=== PATIENT | male | born 2000 | race Caucasian/White ===

== ENCOUNTER 2020-10-29 22:50 | Emergency (ER) | payer OTHER ==
[~2020-10-29] VITALS: Ht 182.8 cm; Wt 84.0 kg
[2020-10-29] MEDS ORDERED: FAMOTIDINE 20 MG (PEPCID) TABLET ONE (22:52)
[2020-10-29] MEDS ORDERED: diphenhydrAMINE 50 MG/ML INJ (BENADRYL) ONE (22:52)
[2020-10-29] MEDS ORDERED: predniSONE 20 MG TAB ONE (22:53)
[2020-10-29] MEDS ORDERED: FAMOTIDINE 20 MG (PEPCID) TABLET PO STA (22:57)
[2020-10-29] MEDS ORDERED: predniSONE 20 MG TAB PO ONE (23:00)
[2020-10-29] MEDS ORDERED: diphenhydrAMINE 50 MG/ML INJ (BENADRYL) IM ONE (23:00)
--- NOTE | 2020-10-29 23:21 | ED General ---
General Chief Complaint: Allergic Reaction Stated Complaint: ALLERGIC REACTION / TROUBLE BREATHING Nursing Triage Note: POSSIBLE ALLERGIC REACTION TO ACNE MEDICATION, THROAT DISCOMFORT Nursing Sepsis Screen: No Definite Risk Source of Information: Patient Exam Limitations: No Limitations History of Present Illness Date Seen by Provider: Oct 29, 2020 Time Seen by Provider: 22:52 Initial Comments Patient is here with complaint of redness to the face and throat after using an acne medicine to the face. States he had a similar reaction a few years ago. He did put the medicine on a few hours ago and then noticed redness a couple hours later. He did wash his face. Presented due to increasing redness and concerns about feeling like his throat was swelling a little. Not currently wheezing. No report of nausea, vomiting or weakness. States that he has environmental allergies and allergies to foods but no drug allergies that he knows of. Timing/Duration: 1-3 Hours Severity: Moderate Modifying Factors: worse with Medication Associated Systoms: No Chest Pain, No Cough, No Fever/Chills, No Nausea/Vomiting, No Shortness of Air, No Weakness Allergies and Home Medications Allergies Coded Allergies: No Known Drug Allergies (Unverified , 10/29/20) Patient Home Medication List Home Medication List Reviewed: Yes Review of Systems Review of Systems Constitutional: see HPI; No chills, No fever EENTM: throat swelling; No nose congestion, No throat pain Respiratory: No cough, No short of breath, No wheezing Cardiovascular: no symptoms reported Gastrointestinal: No nausea, No vomiting Musculoskeletal: no symptoms reported Skin: see HPI, change in color, rash Psychiatric/Neurological: Denies Headache, Denies Weakness All Other Systems Reviewed Negative Unless Noted: Yes Past Puzppgv-Cxcgci-Sedupt Hx Past Med/Social Hx: Reviewed Nursing Past Med/Soc Hx Patient Social History Alcohol Use: Denies Use Smoking Status: Never a Smoker 2nd Hand Smoke Exposure: No Recent Infectious Disease Expo: No Recent Hopitalizations: No Immunizations Up To Date Tetanus Booster (TDap): Less than 5yrs Seasonal Allergies Seasonal Allergies: Yes Past Medical History Surgeries: No Respiratory: Yes Asthma Cardiac: No Neurological: No Genitourinary: No Gastrointestinal: No Musculoskeletal: No Endocrine: No HEENT: No Cancer: No Psychosocial: No Integumentary: No Blood Disorders: No Family Medical History Reviewed Nursing Family Hx Physical Exam Vital Signs Vital Signs - First Documented 10/29/20 22:55 Temp 36.8 Pulse 100 Resp 18 B/P (MAP) 149/84 (105) Pulse Ox 100 O2 Delivery Room Air Capillary Refill : Less Than 3 Seconds Height, Weight, BMI Height: '" Weight: lbs. oz. kg; 25.00 BMI Method: General Appearance: No Apparent Distress, WD/WN HEENT: PERRL/EOMI, Pharynx Normal; No Pharyngeal Erythema, No Tonsillar Enlargement; Other (No obvious tongue or throat swelling) Neck: Non Tender, Supple Respiratory: Lungs Clear, Normal Breath Sounds, No Accessory Muscle Use, No Respiratory Distress Cardiovascular: Regular Rate, Rhythm, No Murmur Gastrointestinal: Non Tender, Soft Back: Normal Inspection, No CVA Tenderness, No Vertebral Tenderness Extremity: Normal Range of Motion, Non Tender Neurologic/Psychiatric: Alert, Oriented x3 Skin: Warm/Dry, Erythema, Rash, Other (Redness noted around face near mouth and anterior portion of the neck below the jawline) Progress/Results/Core Measures Suspected Sepsis Recent Fever Within 48 Hours: No Infection Criteria Present: None New/Unexplained Altered Menta: No Sepsis Screen: No Definite Risk SIRS Temperature: Pulse: 100 Respiratory Rate: 18 Blood Pressure 149 /84 Mean: 105 Results/Orders My Orders Orders - ZHANG EASTON MD Diphenhydramine Injection (Benadryl Inje (10/29/20 22:52) Famotidine Tablet (Pepcid Tablet) (10/29/20 22:52) Prednisone Tablet (Deltasone Tablet) (10/29/20 23:00) Diphenhydramine Injection (Benadryl Inje (10/29/20 23:00) Famotidine Tablet (Pepcid Tablet) (10/29/20 22:57) Prednisone Tablet (Deltasone Tablet) (10/29/20 22:53) Medications Given in ED Current Medications Medications Dose Ordered Sig/Tommy Route Start Time Stop Time Status Last Admin Dose Admin Diphenhydramine HCl 50 mg ONCE ONCE IM 10/29/20 23:00 10/29/20 23:01 DC 10/29/20 22:59 50 MG Prednisone 40 mg ONCE ONCE PO 10/29/20 23:00 10/29/20 23:01 DC 10/29/20 22:59 40 MG Vital Signs/I&O 10/29/20 22:55 Temp 36.8 Pulse 100 Resp 18 B/P (MAP) 149/84 (105) Pulse Ox 100 O2 Delivery Room Air Capillary Refill : Less Than 3 Seconds Blood Pressure Mean: 105 Progress Note : Progress Note Seen and evaluated. Benadryl 50 mg IM, prednisone 40 mg p.o. and Pepcid 20 mg p.o. ordered. Monitor patient. 0004: Patient is doing a little better. Cert ainly no progression. Blood pressure, heart rate and O2 saturations are in normal range. He was instructed to not use the inciting substance again which he states he will not. He will also list that as allergy went to the figures out exactly what that is. We will continue outpatient prednisone and [id number] famotidine along with Benadryl or the allergy pill that he is taking. Discharged home with return precautions. Patient verbalized understanding of instructions and agreement with plan. Departure Impression Primary Impression: Allergic reaction of correct medicinal substance properly administered Additional Impression: Contact dermatitis Qualified Codes: L24.4 - Irritant contact dermatitis due to drugs in contact with skin Disposition: HOME, SELF-CARE Condition: Improved Departure-Patient Inst. Decision time for Depature: 00:06 Patient Instructions: Drug Allergy, Contact Dermatitis (DC) Add. Discharge Instructions: All discharge instructions reviewed with patient and/or family. Voiced understanding. Do not use the acne medication to the face anymore. Follow-up with your doctor in a few days for recheck as needed. Take medications as directed. You may take [id number] Pepcid or the generic famotidine 20 mg daily for the next for 5 days. You may continue the allergy medication that you are taking or diphenhydramine/Benadryl as needed for itching or redness. Return for breathing problems, weakness, nausea, vomiting, swelling of the face or throat or other concerns as needed. Scripts Prednisone (Prednisone) 20 Mg Tab 40 MG PO DAILY, #6 TAB 0 Refills Prov: ZHANG EASTON MD 10/30/20 ZHANG EASTON MD Oct 29, 2020 23:21
[2020-10-30] MEDS ORDERED: PRD20T PO (00:08)
[2020-10-30 00:10] VITALS: BP 133/73
== END 2020-10-30 00:10 | disposition home or self-care (01) ==
LOC: ER 22:54
DX: L23.3 Allergic contact dermatitis due to drugs in contact with skin (principal)
CPT/HCPCS: 99284

== ENCOUNTER 2021-03-28 01:00 | Emergency (ER) | payer OTHER ==
[~2021-03-28] VITALS: Ht 182.9 cm; Wt 88.5 kg
[~2021-03-28 01:00] MED LIST: PRD20T PO
[2021-03-28] MEDS ORDERED: LACTATED RINGERS 1,000 ML IV STA (01:45)
--- NOTE | 2021-03-28 01:52 | ED Syncope ---
General Chief Complaint: Neurological Problems Stated Complaint: SEIZURE Source of Information: Patient Exam Limitations: No Limitations History of Present Illness Date Seen by Provider: Mar 28, 2021 Time Seen by Provider: 01:12 Initial Comments Patient to the ER by private conveyance with his pills and mother. Chief complaint adams he had a witnessed syncopal episode and seizure-like activity on the ground. He does not have a history of epilepsy nor does anybody in his family. He says he has been moving his family to [place] today as well as he ate a couple scoops of preworkout, multiple energy drinks caffeinated drinks and then adams was at the bar when it occurred. He had drank some vodka with [employer] and it as well as other alcoholic beverages. He has been smoking marijuana. He does not have a history of any heart problems or medical problems. No history of diabetes. Allergies and Home Medications Allergies Coded Allergies: No Known Drug Allergies (Unverified , 10/29/20) Home Medications Prednisone 20 Mg Tab, 40 MG PO DAILY Prescribed by: ZHANG EASTON on 10/30/20 0008 Patient Home Medication List Home Medication List Reviewed: Yes Review of Systems Constitutional: No chills, No fever, No malaise EENTM: No ear discharge, No ear pain Respiratory: No cough, No phlegm Cardiovascular: No chest pain, No palpitations Gastrointestinal: No abdominal pain; nausea; No vomiting Genitourinary: No discharge, No dysuria Musculoskeletal: No back pain, No joint pain Psychiatric/Neurological: Denies Anxiety, Denies Depressed All Other Systems Reviewed Negative Unless Noted: Yes Past Naqnejg-Pevaef-Pdzqta Hx Patient Social History Tobacco Use?: No Use of E-Cig and/or Vaping dev: No Substance use?: Yes Substance type: Marijuana Alcohol Use?: Yes Alcohol type: Beer, Hard Liquor Alcohol Frequency: Couple times a week Immunizations Up To Date Tetanus Booster (TDap): Less than 5yrs Seasonal Allergies Seasonal Allergies: Yes Past Medical History Surgeries: No Respiratory: Yes Asthma Cardiac: No Neurological: No Genitourinary: No Gastrointestinal: No Musculoskeletal: No Endocrine: No HEENT: No Cancer: No Psychosocial: No Integumentary: No Blood Disorders: No Physical Exam Vital Signs Vital Signs - First Documented 03/28/21 01:12 Temp 36.6 Pulse 80 Resp 16 B/P (MAP) 114/76 (89) O2 Delivery Room Air Capillary Refill : Height, Weight, BMI Height: '" Weight: lbs. oz. kg; 25.00 BMI Method: General Appearance: WD/WN, Moderate Distress HEENT: PERRL/EOMI, Pharynx Normal, Moist Mucous Membranes Neck: Full Range of Motion, Normal Inspection Cardiovascular: Regular Rate, Rhythm, No Edema, Normal Peripheral Pulses Respiratory: Lungs Clear, Normal Breath Sounds, No Accessory Muscle Use, No Respiratory Distress Gastrointestinal: Normal Bowel Sounds, No Organomegaly, Non Tender, Soft Extremities: Normal Capillary Refill, Normal Inspection, Normal Range of Motion, No Pedal Edema Neurologic/Psychiatric: Alert, Oriented x3 Cranial Nerves: Normal Hearing, Normal Speech, PERRL Motor/Sensory: No Motor Deficit, No Sensory Deficit Skin: Normal Color, Diaphoresis Progress/Results/Core Measures Results/Orders Lab Results Laboratory Tests Test 03/28/21 01:26 Range/Units White Blood Count 10.0 4.3-11.0 10^3/uL Red Blood Count 4.89 4.30-5.52 10^6/uL Hemoglobin 14.3 13.3-17.7 g/dL Hematocrit 43 40-54 % Mean Corpuscular Volume 88 80-99 fL Mean Corpuscular Hemoglobin 29 25-34 pg Mean Corpuscular Hemoglobin Concent 33 32-36 g/dL Red Cell Distribution Width 11.9 10.0-14.5 % Platelet Count 300 130-400 10^3/uL Mean Platelet Volume 8.8 L 9.0-12.2 fL Immature Granulocyte % (Auto) 0 % Neutrophils (%) (Auto) 69 42-75 % Lymphocytes (%) (Auto) 21 12-44 % Monocytes (%) (Auto) 6 0-12 % Eosinophils (%) (Auto) 4 0-10 % Basophils (%) (Auto) 1 0-10 % Neutrophils # (Auto) 6.8 1.8-7.8 10^3/uL Lymphocytes # (Auto) 2.1 1.0-4.0 10^3/uL Monocytes # (Auto) 0.6 0.0-1.0 10^3/uL Eosinophils # (Auto) 0.4 H 0.0-0.3 10^3/uL Basophils # (Auto) 0.1 0.0-0.1 10^3/uL Immature Granulocyte # (Auto) 0.0 0.0-0.1 10^3/uL Sodium Level 139 135-145 MMOL/L Potassium Level 3.0 L 3.6-5.0 MMOL/L Chloride Level 97 L 98-107 MMOL/L Carbon Dioxide Level 26 21-32 MMOL/L Anion Gap 16 H 5-14 MMOL/L Blood Urea Nitrogen 15 7-18 MG/DL Creatinine 1.54 H 0.60-1.30 MG/DL Estimat Glomerular Filtration Rate 57 BUN/Creatinine Ratio 10 Glucose Level 108 H 70-105 MG/DL Calcium Level 9.6 8.5-10.1 MG/DL Corrected Calcium 8.5-10.1 MG/DL Total Bilirubin 0.6 0.1-1.0 MG/DL Aspartate Amino Transf (AST/SGOT) 49 H 5-34 U/L Alanine Aminotransferase (ALT/SGPT) 46 0-55 U/L Alkaline Phosphatase 59 40-136 U/L Total Creatine Kinase 684 H 30-200 U/L C-Reactive Protein High Sensitivity 0.07 0.00-0.50 MG/DL Total Protein 7.5 6.4-8.2 GM/DL Albumin 4.8 H 3.2-4.5 GM/DL Serum Alcohol 30 H <10 MG/DL My Orders Orders - SUSHMA CRUZ Orthostatic Vital Signs (Adult (03/28/21 01:45) Lactated Ringers (Lr 1000 Ml Iv Solution (03/28/21 01:45) Cbc With Automated Diff (03/28/21 01:45) Comprehensive Metabolic Panel (03/28/21 01:45) Hs C Reactive Protein (03/28/21 01:45) Ua Culture If Indicated (03/28/21 01:45) Drug Screen Stat (Urine) (03/28/21 01:45) Continuous Ekg Monitoring (03/28/21 01:45) Ekg Tracing (03/28/21 01:45) Alcohol (03/28/21 01:52) Creatine Kinase (03/28/21 02:16) Vital Signs/I&O 03/28/21 03/28/21 01:12 02:00 Temp 36.6 Pulse 80 71 81 81 Resp 16 B/P (MAP) 114/76 (89) 108/66 (80) 111/59 (76) 101/59 (73) O2 Delivery Room Air Progress Progress Note #1: Time: 01:59 Progress Note Patient had some soft blood pressures when he arrived. His story sounds more consistent with orthostasis, syncope and convulsions associated with syncope. We will get an EKG, labs give him a liter of lactated Ringer's check some orthostatic vital signs. Alcohol and urine drug screen. Urinalysis. Progress Note #2: Time: 02:36 Progress Note The patient's potassium will resolve as soon as he stops throwing up and start eating again. The mild elevation in CPK indicates some mild rhabdo along with his mild creatinine elevation and we did offer a second liter of fluids but he declined stating he would prefer to go home and drink water. He is able to drink water here in the ER without vomiting. Were going to send him home with a dose of nausea medicine sent to the [facility] for him later. We have instructed him on staying in a air conditioning controlled environment for the next several days and to avoid desiccant such as alcohol and caffeine for now. Initial ECG Impression Date: Mar 28, 2021 Initial ECG Impression Time: 01:57 Initial ECG Rate: 71 Initial ECG Rhythm: Normal Sinus Initial ECG Intervals: Normal Initial ECG Impression: Normal Comment Normal sinus rhythm with no clinically relevant ST changes. Departure Impression Primary Impression: Dehydration after exertion Additional Impressions: Alcohol intoxication Qualified Codes: F10.920 - Alcohol use, unspecified with intoxication, uncomplicated Non-traumatic rhabdomyolysis Syncope and collapse Disposition: 01 HOME, SELF-CARE Condition: Stable Departure-Patient Inst. Decision time for Depature: 02:39 Referrals: [facility] (PCP/Family) Primary Care Physician Patient Instructions: Syncope (Fainting), Rhabdomyolysis (DC), Dehydration, Adult (DC) Add. Discharge Instructions: It is important you drink plenty of fluids. Water or sports drinks are encouraged. Avoid fluids with caffeine or alcohol in them. For the next 3 to 4 days you should stay in an air conditioned environment and avoid extreme exertion especially in the heat. Decrease your risk for this happening again by drinking 2 glasses of water for every alcoholic drink and do not combine stimulants such as caffeine with alcohol as this will permit you to consume more alcohol then with your body would normally allow for leading to these kind of situations. Return to the nearest ER if you are having any further worsening symptoms. Zofran 1 tablet under the tongue every 6 hours as necessary for nausea and/or vomiting. All discharge instructions reviewed with patient and/or family. Voiced understanding. Scripts Ondansetron (Ondansetron Odt) 4 Mg Tab.rapdis 4 MG PO Q6H PRN for NAUSEA/VOMITING, #8 TAB 0 Refills Prov: SUSHMA CRUZ 03/28/21 SUSHMA CRUZ Mar 28, 2021 01:52
[2021-03-28 02:00] VITALS: BP_SYST 101; BP_SYST 108; BP_SYST 111; BP_DIAS 59; BP_DIAS 66
[2021-03-28 02:00] LABS: BASOPHILS # (AUTO) 0.1 10^3/uL (0.0-0.1); BASOPHILS % (AUTO) 1 % (0-10); EOSINOPHILS # (AUTO) 0.4 10^3/uL (0.0-0.3); EOSINOPHILS % (AUTO) 4 % (0-10); HEMATOCRIT 43 % (40-54); HEMOGLOBIN 14.3 g/dL (13.3-17.7); LYMPHOCYTES # (AUTO) 2.1 10^3/uL (1.0-4.0); LYMPHOCYTES % (AUTO) 21 % (12-44); MEAN CORPUSCULAR HEMOGLOBIN 29 pg (25-34); MEAN CORPUSCULAR HGB CONC 33 g/dL (32-36); MEAN CORPUSCULAR VOLUME 88 fL (80-99); MEAN PLATELET VOLUME 8.8 fL (9.0-12.2); MONOCYTES # (AUTO) 0.6 10^3/uL (0.0-1.0); MONOCYTES % (AUTO) 6 % (0-12); NEUTROPHILS # (AUTO) 6.8 10^3/uL (1.8-7.8); NEUTROPHILS % (AUTO) 69 % (42-75); PLATELET COUNT 300 10^3/uL (130-400)
[2021-03-28 02:04] LABS: ALBUMIN 4.8 GM/DL (3.2-4.5); CHLORIDE 97 MMOL/L (98-107); SODIUM 139 MMOL/L (135-145)
[2021-03-28 02:06] LABS: CALCIUM 9.6 MG/DL (8.5-10.1)
[2021-03-28 02:07] LABS: GLUCOSE 108 MG/DL (70-105); TOTAL PROTEIN 7.5 GM/DL (6.4-8.2)
[2021-03-28 02:08] LABS: CARBON DIOXIDE 26 MMOL/L (21-32)
[2021-03-28 02:09] LABS: BILIRUBIN,TOTAL 0.6 MG/DL (0.1-1.0)
[2021-03-28 02:10] LABS: ALKALINE PHOSPHATASE 59 U/L (40-136)
[2021-03-28 02:11] LABS: CREATININE SERUM 1.54 MG/DL (0.60-1.30); GFR ESTIMATED 57
[2021-03-28 02:12] LABS: BUN/CREATININE RATIO 10
[2021-03-28 02:13] LABS: ALANINE AMINOTRANSFERASE 46 U/L (0-55)
[2021-03-28] MEDS ORDERED: ONDA4TAB11 PO (02:41)
[2021-03-28 02:44] LABS: BILIRUBIN,URINE NEGATIVE (NEGATIVE); CLARITY,URINE CLEAR; COLOR,URINE YELLOW; GLUCOSE, URINE (UA) NEGATIVE (NEGATIVE); KETONES,URINE NEGATIVE (NEGATIVE); LEUKOCYTE ESTERASE ,URINE NEGATIVE (NEGATIVE); NITRITE,URINE NEGATIVE (NEGATIVE); PROTEIN,URINE 1+ (NEGATIVE)
[2021-03-28 02:48] VITALS: BP 123/80
[2021-03-28 03:08] LABS: BACTERIA,URINE NEGATIVE /HPF
[2021-03-28 03:09] LABS: AMPHETAMINE SCREEN, URINE NEGATIVE (NEGATIVE); BARBITURATE SCREEN URINE NEGATIVE (NEGATIVE); BENZODIAZEPINES SCREEN URINE NEGATIVE (NEGATIVE); CANNABINOID SCREEN, URINE POSITIVE (NEGATIVE); COCAINE SCREEN URINE NEGATIVE (NEGATIVE); METHADONE STAT NEGATIVE (NEGATIVE); METHAMPHETAMINE SCREEN URINE S NEGATIVE (NEGATIVE); OPIATE SCREEN URINE NEGATIVE (NEGATIVE); OXYCODONE STAT NEGATIVE (NEGATIVE); PROPOXYPHENE STAT NEGATIVE (NEGATIVE); TRICYCLIC ANTIDEPRESSANTS SCRE NEGATIVE (NEGATIVE)
== END 2021-03-28 02:48 | disposition home or self-care (01) ==
LOC: EDUNIT# 01:00 → ER 01:03
DX: E86.0 Dehydration (principal); F10.129 Alcohol abuse with intoxication, unspecified; M62.82 Rhabdomyolysis; R55 Syncope and collapse; J45.909 Unspecified asthma, uncomplicated; Z79.52 Long term (current) use of systemic steroids
CPT/HCPCS: 80053; 80306; 81000; 82550; 85025; 86141; 93005; 99284; G0480; 36415; 80320